=== PATIENT | female | born 1960 | race Caucasian/White ===

== ENCOUNTER 2017-01-02 08:45 | Day surgery (SDC) | payer BC ==
[~2017-01-02] VITALS: Ht 175.3 cm; Wt 82.6 kg
[~2017-01-02 08:45] MED LIST: CALCIUM600 M1 PO; FISH OIL SUPER1 SGL PO; PHENERGAN 25 TA25 MG PO; ZOFRAN 4MG T4 MG/TAB PO
[2017-01-02 09:37] VITALS: BP 102/86; PULSE 57; TEMP 97.7
[2017-01-02 10:53] VITALS: BP 95/65; PULSE 49; TEMP 97.8
[2017-01-02 11:08] VITALS: BP 99/67; PULSE 48
[2017-01-02 11:23] VITALS: BP 100/73; PULSE 42
== END 2017-01-02 11:40 | disposition home or self-care (01) ==
LOC: SDCO 08:45
DX: Z12.11 Encounter for screening for malignant neoplasm of colon (principal)
CPT/HCPCS: J2250; J3010; J7030

== ENCOUNTER → 2017-03-26 | Outpatient (CLI) | payer BC | LOC: MC.RAD 03-20 11:20 | DX: Z12.31 Encounter for screening mammogram for malignant neoplasm of breast (principal) ==

== ENCOUNTER → 2018-06-17 | Outpatient (CLI) | payer BC | LOC: MC.RAD 09:05 | DX: Z12.31 Encounter for screening mammogram for malignant neoplasm of breast (principal) ==

== ENCOUNTER → 2019-09-02 | Outpatient (CLI) | payer BC | LOC: MC.RAD 08:30 | DX: Z12.31 Encounter for screening mammogram for malignant neoplasm of breast (principal) ==

== ENCOUNTER → 2020-10-05 | Outpatient (CLI) | payer BC | LOC: MC.RAD 09:06 | DX: Z12.31 Encounter for screening mammogram for malignant neoplasm of breast (principal) ==

== ENCOUNTER → 2021-11-07 | Outpatient (CLI) | payer BC | LOC: MC.RAD 11:29 | DX: Z12.31 Encounter for screening mammogram for malignant neoplasm of breast (principal) ==